=== PATIENT | male | born 1985 | race Caucasian/White ===

== ENCOUNTER 2020-07-17 22:38 | Emergency (ER) | payer OTHER ==
[2020-07-17] MEDS ORDERED: Nitrostat 0.4 MG (ED) SL ONE ×2 (22:57→23:09)
[2020-07-17] MEDS ORDERED: BABY ASPIRIN 81 MG CHEW PO ONE (22:57)
[2020-07-17] MEDS ORDERED: Sodium Chloride 0.9% 1000 ML 1,000 ML IV SCH (23:00)
--- NOTE | 2020-07-17 23:02 | ERPHSYRPT ---
- History of Present Illness Time Seen by Provider: 07/17/20 22:53 Historian: patient Exam Limitations: no limitations Patient Subjective Stated Complaint: pt to ER with complaints of chest pain in L chest. sharp/burning pain Triage Nursing Assessment: A&Ox4. ambulatory. skin pwd. Physician History: For the past 2 months pt has had daily left anterior chest burning; for the past month shortness of air; denies fever, vomiting, abdominal pain. Aspirin Treatment Today: 81 mg x 4, provided by ED Allergies/Adverse Reactions: No Known Drug Allergies Allergy (Unverified 07/17/20 22:58) Hx Tetanus, Diphtheria Vaccination/Date Given: Yes Hx Influenza Vaccination/Date Given: Yes Hx Pneumococcal Vaccination/Date Given: No Immunizations Up to Date: Yes Travel Risk - International Travel Have you traveled outside of the country in past 3 weeks: No - Coronavirus Screening Are you exhibiting any of the following symptoms?: No Symptoms: Shortness of Breath Close contact with a COVID-19 positive Pt in past 14-21 Days: No - Review of Systems Constitutional: No Fever Respiratory: Dyspnea Cardiac: Chest Pain Abdominal/Gastrointestinal: No Abdominal Pain, No Nausea, No Vomiting Neurological: No Headache All Other Systems: Reviewed and Negative - Past Medical History Pertinent Past Medical History: No - Past Surgical History Past Surgical History: Yes - Social History Smoking Status: Light tobacco smoker Exposure to second hand smoke: Yes Drug Use: none Patient Lives Alone: No - Nursing Vital Signs Nursing Vital Signs: Initial Vital Signs Pulse Rate 101 H 07/17/20 22:50 Respiratory Rate 17 07/17/20 22:50 Blood Pressure 123/65 07/17/20 22:50 O2 Sat by Pulse Oximetry 98 07/17/20 22:50 Pain Scale Pain Intensity 5 - Physical Exam General Appearance: alert Eye Exam: PERRL/EOMI Ears, Nose, Throat Exam: pharynx normal Neck Exam: normal inspection Respiratory Exam: lungs clear Cardiovascular Exam: normal heart sounds Gastrointestinal/Abdomen Exam: soft, normal bowel sounds Back Exam: normal range of motion Extremity Exam: normal inspection Neurologic Exam: alert, cooperative Skin Exam: warm, dry SpO2 Interpretation: normal SpO2: 98 O2 Delivery: Room Air - Course Nursing assessment & vital signs reviewed: Yes EKG Interpreted by Me: RATE (95), Sinus Rhythm, NORMAL AXIS - Radiology Exams Chest X-ray Interpretation: Interpreted by me, No Pneumonia Ordered Tests: Active Orders 24 hr Category Date Time Status Quality Assurance Nurse STAT Care 07/17/20 22:58 Active EKG-ER Only STAT Care 07/17/20 22:57 Active IV Insertion STAT Care 07/17/20 22:57 Active Pulse Oximetry (ED) STAT Care 07/17/20 22:57 Active Re-Check Vital Signs STAT Care 07/17/20 22:57 Active CHEST 2 VIEWS (PA AND LAT) Stat Exams 07/17/20 22:57 Taken CBC W DIFF Stat Lab 07/17/20 23:16 Completed CMP Stat Lab 07/17/20 23:16 Completed D-DIMER QUANTITATIVE Stat Lab 07/17/20 23:16 Completed MAGNESIUM Stat Lab 07/17/20 23:16 Completed NT PRO BNP Stat Lab 07/17/20 23:16 Completed TROPONIN Q3H Lab 07/18/20 02:00 Ordered TROPONIN Q3H Lab 07/18/20 05:00 Ordered TROPONIN Q3H Lab 07/18/20 08:00 Ordered TROPONIN Q3H Lab 07/18/20 11:00 Ordered UA W/RFX UR CULTURE Stat Lab 07/18/20 02:35 Completed Urine Triage Profile Stat Lab 07/18/20 02:35 Received Medication Summary Generic Name Dose Route Start Last Admin Trade Name Freq PRN Reason Stop Dose Admin Sodium Chloride 1,000 mls @ 100 mls/hr 07/17/20 23:00 07/17/20 23:13 Sodium Chloride 0.9% 1000 Ml IV 08/16/20 22:59 100 mls/hr .Q10H MEHRDAD Administration Discontinued Medications Generic Name Dose Route Start Last Admin Trade Name Freq PRN Reason Stop Dose Admin Aspirin 324 mg 07/17/20 22:57 07/17/20 23:11 Baby Aspirin 81 Mg Chew PO 07/17/20 22:58 324 mg STAT ONE Administration Aspirin Confirm 07/17/20 23:09 Baby Aspirin 81 Mg Chew Administered 07/17/20 23:10 Dose 324 mg .ROUTE .STK-MED ONE Nitroglycerin 0.4 mg 07/17/20 22:57 07/17/20 23:13 Nitrostat 0.4 Mg (Ed) SL 07/17/20 22:58 0.4 mg STAT ONE Administration Nitroglycerin Confirm 07/17/20 23:09 Nitrostat 0.4 Mg (Ed) Administered 07/17/20 23:10 Dose 0.4 mg SL .STK-MED ONE Potassium Bicarbonate 50 meq 07/18/20 00:18 07/18/20 00:54 K-Lyte 25 Meq PO 07/18/20 00:19 50 meq STAT ONE Administration Potassium Bicarbonate Confirm 07/18/20 00:49 K-Lyte 25 Meq Administered 07/18/20 00:50 Dose 50 meq .ROUTE .STK-MED ONE Lab/Rad Data: Laboratory Result Diagrams 07/17/20 23:16 07/17/20 23:16 Laboratory Results 07/18/20 07/17/20 07/17/20 Range/Units 02:35 23:16 23:16 WBC (4.0-10.5) K/mm3 RBC (4.1-5.6) M/mm3 Hgb (12.5-18.0) gm/dl Hct (42-50) % MCV (78-100) fl MCH (26-32) pg MCHC (32-36) g/dl RDW (11.5-14.0) % Plt Count (150-450) K/mm3 MPV (7.5-11.0) fl Gran % (36.0-66.0) % Eos # (Auto) (0-0.5) Absolute Lymphs (auto) (1.0-4.6) Absolute Monos (auto) (0.0-1.3) Lymphocytes % (24.0-44.0) % Monocytes % (0.0-12.0) % Eosinophils % (0.00-5.0) % Basophils % (0.0-0.4) % Absolute Granulocytes (1.4-6.9) Basophils # (0-0.4) D-Dimer < 215 L (215-500) ng/mL Sodium (137-145) mmol/L Potassium (3.5-5.1) mmol/L Chloride (98-107) mmol/L Carbon Dioxide (22-30) mmol/L Anion Gap (5-15) MEQ/L BUN (9-20) mg/dL Creatinine (0.66-1.25) mg/dL Estimated GFR ML/MIN Glucose (74-106) mg/dL Calcium (8.4-10.2) mg/dL Magnesium 2.0 (1.6-2.3) mg/dL Total Bilirubin (0.2-1.3) mg/dL AST (17-59) U/L ALT (0-50) U/L Alkaline Phosphatase (38-126) U/L Troponin I (0.000-0.034) ng/mL NT-Pro-B Natriuret Pep (0-450) pg/mL Serum Total Protein (6.3-8.2) g/dL Albumin (3.5-5.0) g/dL Urine Color STRAW (YELLOW) Urine Appearance CLEAR (CLEAR) Urine pH 6.0 (5-6) Ur Specific [place] 1.004 (1.005-1.025) Urine Protein NEGATIVE (Negative) Urine Ketones NEGATIVE (NEGATIVE) Urine Blood NEGATIVE (0-5) [place]/ul Urine Nitrite NEGATIVE (NEGATIVE) Urine Bilirubin NEGATIVE (NEGATIVE) Urine Urobilinogen NEGATIVE (0-1) mg/dL Ur Leukocyte Esterase NEGATIVE (NEGATIVE) Urine WBC (Auto) NONE SEEN (0-5) /HPF Urine RBC (Auto) NONE (0-2) /HPF U Epithel Cells (Auto) NONE (FEW) /HPF Urine Bacteria (Auto) NONE SEEN (NEGATIVE) /HPF Urine Culture Reflexed NO (NO) Urine Glucose 50 (NEGATIVE) mg/dL 07/17/20 07/17/20 07/17/20 Range/Units 23:16 23:16 00:00 WBC 5.8 (4.0-10.5) K/mm3 RBC 4.88 (4.1-5.6) M/mm3 Hgb 15.1 (12.5-18.0) gm/dl Hct 44.2 (42-50) % MCV 90.6 (78-100) fl MCH 30.9 (26-32) pg MCHC 34.2 (32-36) g/dl RDW 12.3 (11.5-14.0) % Plt Count 274 (150-450) K/mm3 MPV 9.4 (7.5-11.0) fl Gran % 67.7 H (36.0-66.0) % Eos # (Auto) 0.05 (0-0.5) Absolute Lymphs (auto) 1.27 (1.0-4.6) Absolute Monos (auto) 0.53 (0.0-1.3) Lymphocytes % 22.0 L (24.0-44.0) % Monocytes % 9.2 (0.0-12.0) % Eosinophils % 0.9 (0.00-5.0) % Basophils % 0.2 (0.0-0.4) % Absolute Granulocytes 3.91 (1.4-6.9) Basophils # 0.01 (0-0.4) D-Dimer (215-500) ng/mL Sodium 139 (137-145) mmol/L Potassium 3.2 L (3.5-5.1) mmol/L Chloride 103 (98-107) mmol/L Carbon Dioxide 24 (22-30) mmol/L Anion Gap 14.4 (5-15) MEQ/L BUN 8 L (9-20) mg/dL Creatinine 0.92 (0.66-1.25) mg/dL Estimated GFR > 60.0 ML/MIN Glucose 113 H (74-106) mg/dL Calcium 9.2 (8.4-10.2) mg/dL Magnesium (1.6-2.3) mg/dL Total Bilirubin 0.50 (0.2-1.3) mg/dL AST 34 (17-59) U/L ALT 32 (0-50) U/L Alkaline Phosphatase 62 (38-126) U/L Troponin I < 0.012 (0.000-0.034) ng/mL NT-Pro-B Natriuret Pep 20.4 (0-450) pg/mL Serum Total Protein 7.5 (6.3-8.2) g/dL Albumin 4.7 (3.5-5.0) g/dL Urine Color (YELLOW) Urine Appearance (CLEAR) Urine pH (5-6) Ur Specific [place] (1.005-1.025) Urine Protein (Negative) Urine Ketones (NEGATIVE) Urine Blood (0-5) [place]/ul Urine Nitrite (NEGATIVE) Urine Bilirubin (NEGATIVE) Urine Urobilinogen (0-1) mg/dL Ur Leukocyte Esterase (NEGATIVE) Urine WBC (Auto) (0-5) /HPF Urine RBC (Auto) (0-2) /HPF U Epithel Cells (Auto) (FEW) /HPF Urine Bacteria (Auto) (NEGATIVE) /HPF Urine Culture Reflexed (NO) Urine Glucose (NEGATIVE) mg/dL - Progress Progress: unchanged Counseled pt/family regarding: lab results, diagnosis, rad results - Departure Departure Disposition: Home Clinical Impression: Chest pain, Hypokalemia, Dyspnea Condition: Stable Critical Care Time: No Referrals: DOCTOR,NO FAMILY [Primary Care Provider] - Instructions: Chest Pain (DC) Additional Instructions: Follow up with private doctor tomorrow. Forms: Work/School Release Form
[2020-07-17] MEDS ORDERED: BABY ASPIRIN 81 MG CHEW ONE (23:09)
[2020-07-17] MEDS ORDERED: Sodium Chloride 0.9% 1000 ML 1,000 ML ONE (23:10)
[2020-07-17 23:22] LABS: Absolute Neutrophil Ct (ANC) 3.91 (1.4-6.9); BASOPHIL % 0.2 % (0.0-0.4); Basophil (Absolute #) 0.01 (0-0.4); Eosinophil % 0.9 % (0.00-5.0); Eosinophil (Absolute #) 0.05 (0-0.5); Hematocrit 44.2 % (42-50); Hemoglobin 15.1 gm/dl (12.5-18.0); Lymphocyte (Absolute #) 1.27 (1.0-4.6); Mean Cell Volume 90.6 fl (78-100); Mean Corpuscular Hemoglobin 30.9 pg (26-32); Mean Corpuscular Hgb Concent. 34.2 g/dl (32-36); Mean Platelet Volume 9.4 fl (7.5-11.0); Monocyte (Absolute #) 0.53 (0.0-1.3); Monocytes % 9.2 % (0.0-12.0); Neutrophil % 67.7 % (36.0-66.0); Platelet Count 274 K/mm3 (150-450); Red Blood Count 4.88 M/mm3 (4.1-5.6); Red Cell Distribution Width 12.3 % (11.5-14.0); White Blood Count 5.8 K/mm3 (4.0-10.5)
[2020-07-17 23:45] LABS: ALBUMIN 4.7 g/dL (3.5-5.0); ALKALINE PHOSPHATASE 62 U/L (38-126); ANION GAP 14.4 MEQ/L (5-15); BLOOD UREA NITROGEN 8 mg/dL (9-20); CHLORIDE 103 mmol/L (98-107); Calcium 9.2 mg/dL (8.4-10.2); Carbon Dioxide 24 mmol/L (22-30); Creatinine 1 0.92 mg/dL (0.66-1.25); EST GLOMERULAR FILTRATION RATE > 60.0 ML/MIN; Glucose 113 mg/dL (74-106); NT PRO BNP 20.4 pg/mL (0-450); Potassium 3.2 mmol/L (3.5-5.1); SGOT/AST 34 U/L (17-59); SGPT/ALT 32 U/L (0-50); SODIUM 139 mmol/L (137-145); Total Protein 7.5 g/dL (6.3-8.2)
[2020-07-18] MEDS ORDERED: K-LYTE 25 MEQ PO ONE (00:18)
[2020-07-18] MEDS ORDERED: K-LYTE 25 MEQ ONE (00:49)
[2020-07-18 02:40] LABS: Appearance CLEAR (CLEAR); Bilirubin NEGATIVE (NEGATIVE); Blood NEGATIVE Ery/ul (0-5); Glucose 50 mg/dL (NEGATIVE); Ketones NEGATIVE (NEGATIVE); Leukocyte Esterase NEGATIVE (NEGATIVE); Nitrite NEGATIVE (NEGATIVE); Protein,Urine Dip NEGATIVE (Negative); Specific Gravity 1.004 (1.005-1.025); Urobilinogen NEGATIVE mg/dL (0-1)
[2020-07-18 02:42] LABS: WBC NONE SEEN /HPF (0-5)
[2020-07-18 02:43] LABS: Bacteria NONE SEEN /HPF (NEGATIVE)
[2020-07-18 02:57] LABS: Amphetamine,Urine NEGATIVE (NEGATIVE); Barbiturate,Urine NEGATIVE (NEGATIVE); Benzodiazepine,Urine NEGATIVE (NEGATIVE); Cocaine,Urine NEGATIVE (NEGATIVE); Methadone,Urine NEGATIVE (NEGATIVE); Opiate,Urine NEGATIVE (NEGATIVE); PCP,Urine NEGATIVE (NEGATIVE); THC,Urine NEGATIVE (NEGATIVE)
[2020-07-18 03:00] VITALS: BP 122/82; PULSE 72; O2SAT 99
--- NOTE | 2020-07-18 09:18 | XRAY ---
Indication: Chest pain. Comparison: April 12, 2020. PA/lateral chest continues to demonstrate normal heart, lungs, and bony thorax.
== END 2020-07-18 03:02 | disposition home or self-care (01) ==
LOC: ED 22:38
DX: R07.9 Chest pain, unspecified (principal); P74.32 Hypokalemia of newborn; R06.00 Dyspnea, unspecified
CPT/HCPCS: 36000; 36415; 71046; 80053; 80307; 81001; 83735; 83880; 84484; 85025; 85379; 93005; 93041; 94760; 99284; A9270-GY